=== PATIENT | female | born 1950 | race Two or more races ===

== ENCOUNTER 2023-02-15 10:08 | Outpatient (CLI) | payer OTHER | END 2023-02-15 10:14 | disposition home or self-care (01) | LOC: TOM 10:08 | PROVIDERS: ATTEND Specialist | DX: J84.10 Pulmonary fibrosis, unspecified (principal); M06.09 Rheumatoid arthritis without rheumatoid factor, multiple sites ==

== ENCOUNTER 2023-03-22 07:10 | Outpatient (CLI) | payer OTHER | END 2023-03-22 07:17 | disposition home or self-care (01) | LOC: NUCLEAR 07:10 | PROVIDERS: ATTEND Specialist | DX: M06.9 Rheumatoid arthritis, unspecified (principal); J84.10 Pulmonary fibrosis, unspecified; M50.90 Cervical disc disorder, unspecified, unspecified cervical region; M60.9 Myositis, unspecified; I11.0 Hypertensive heart disease with heart failure; M51.36 Other intervertebral disc degeneration, lumbar region; M75.40 Impingement syndrome of unspecified shoulder; M75.30 Calcific tendinitis of unspecified shoulder | CPT/HCPCS: 78315; A9503 ==

== ENCOUNTER 2023-11-20 12:50 | Outpatient (CLI) | payer OTHER | END 2023-11-20 12:52 | disposition home or self-care (01) | LOC: NUCLEAR 12:50 | PROVIDERS: ATTEND Specialist | DX: M81.0 Age-related osteoporosis without current pathological fracture (principal); M60.9 Myositis, unspecified; M50.90 Cervical disc disorder, unspecified, unspecified cervical region; M51.36 Other intervertebral disc degeneration, lumbar region; M06.9 Rheumatoid arthritis, unspecified; M75.40 Impingement syndrome of unspecified shoulder; M75.30 Calcific tendinitis of unspecified shoulder ==

== ENCOUNTER → 2023-11-20 13:14 | Outpatient (CLI) | payer OTHER ==
[2023-11-20 13:41] LABS: HEMATOCRIT 40.7 % (36.0-45.00); HEMOGLOBIN 13.6 g/dL (12.0-15.00); MEAN CELL VOLUME 103.1 fL (80.00-100.00); MEAN CORPUSCULAR HEMOGLOBIN 34.5 pg (27.00-32.0); MEAN CORPUSCULAR HGB CONC 33.4 g/dl (32.0-36.0); PLATELET COUNT 380 K/uL (150-450); RED BLOOD COUNT 3.95 M/uL (4.00-6.00)
[2023-11-20 14:06] LABS: INR 2.63; PARTIAL THROMBOPLASTIN TIME 32.6 SECONDS (22.0-34.0)
[2023-11-20 14:19] LABS: PROTHROMBIN TIME 25.7 SECONDS (9.0-11.5)
== END | disposition home or self-care (01) ==
LOC: LAB 13:14
DX: I82.402 Acute embolism and thrombosis of unspecified deep veins of left lower extremity (principal)

== ENCOUNTER 2023-11-20 14:13 | Outpatient (CLI) | payer OTHER | END 2023-11-20 14:46 | disposition home or self-care (01) | LOC: RAD 14:13 | PROVIDERS: ATTEND Specialist | DX: M50.90 Cervical disc disorder, unspecified, unspecified cervical region (principal); M60.9 Myositis, unspecified; I11.0 Hypertensive heart disease with heart failure; M51.36 Other intervertebral disc degeneration, lumbar region; J45.998 Other asthma; J84.10 Pulmonary fibrosis, unspecified; M06.9 Rheumatoid arthritis, unspecified; M75.40 Impingement syndrome of unspecified shoulder; M75.30 Calcific tendinitis of unspecified shoulder; M48.00 Spinal stenosis, site unspecified; M54.16 Radiculopathy, lumbar region ==

== ENCOUNTER 2024-08-26 12:22 | Outpatient (CLI) | payer OTHER | END 2024-08-26 12:29 | disposition home or self-care (01) | LOC: SONOGRAMA 12:22 | PROVIDERS: ATTEND Specialist | DX: M50.90 Cervical disc disorder, unspecified, unspecified cervical region (principal); M60.9 Myositis, unspecified; I11.0 Hypertensive heart disease with heart failure; M51.360 Other intervertebral disc degeneration, lumbar region with discogenic back pain only; M06.9 Rheumatoid arthritis, unspecified; M75.40 Impingement syndrome of unspecified shoulder; M75.30 Calcific tendinitis of unspecified shoulder ==

== ENCOUNTER → 2024-11-28 10:54 | Outpatient (CLI) | payer OTHER | END | disposition home or self-care (01) | LOC: NUCLEAR 11-19 11:00 | PROVIDERS: ATTEND Specialist | DX: M81.0 Age-related osteoporosis without current pathological fracture (principal); M06.9 Rheumatoid arthritis, unspecified ==

== ENCOUNTER 2024-11-28 11:36 | Outpatient (CLI) | payer OTHER | END 2024-11-28 11:38 | disposition home or self-care (01) | LOC: RAD 11:36 | PROVIDERS: ATTEND Specialist | DX: M51.360 Other intervertebral disc degeneration, lumbar region with discogenic back pain only (principal); M60.89 Other myositis, multiple sites; M48.00 Spinal stenosis, site unspecified; M50.90 Cervical disc disorder, unspecified, unspecified cervical region; M60.9 Myositis, unspecified; M06.9 Rheumatoid arthritis, unspecified; M75.30 Calcific tendinitis of unspecified shoulder; M75.40 Impingement syndrome of unspecified shoulder ==

== ENCOUNTER 2025-01-16 09:31 | Outpatient (CLI) | payer OTHER | END 2025-01-16 09:32 | disposition home or self-care (01) | LOC: NUCLEAR 09:31 | PROVIDERS: ATTEND Internal Medicine | DX: I82.522 Chronic embolism and thrombosis of left iliac vein (principal); I70.293 Other atherosclerosis of native arteries of extremities, bilateral legs ==

== ENCOUNTER 2025-01-16 10:44 | Outpatient (CLI) | payer OTHER | END 2025-01-16 10:46 | disposition home or self-care (01) | LOC: MAMO-SONO 10:44 | PROVIDERS: ATTEND Internal Medicine | DX: N63.0 Unspecified lump in unspecified breast (principal); E03.8 Other specified hypothyroidism; E06.9 Thyroiditis, unspecified; Z12.31 Encounter for screening mammogram for malignant neoplasm of breast ==

== ENCOUNTER 2025-06-30 08:19 | Outpatient (CLI) | payer OTHER | END 2025-06-30 08:25 | disposition home or self-care (01) | LOC: SONOGRAMA 08:19 | PROVIDERS: ATTEND Internal Medicine | DX: K76.0 Fatty (change of) liver, not elsewhere classified (principal) ==